=== PATIENT | male | born 1950 | race Caucasian/White ===

== ENCOUNTER 2017-04-07 05:05 | Inpatient (IN) | payer OTHER, MEDICARE ==
[2017-03-11 13:54] VITALS: BMI 27.0
--- NOTE | 2017-03-11 14:35 | PAT Medication Instructions ---
Service Date Mar 11, 2017. Current Home Medication List Acetaminophen (Tylenol), 1,000 MG PO PRN Betamethasone Dip Aug 0.05% (Diprolene 0.05%), 1 DOSE TOP PRN Meloxicam (Mobic), 15 MG PO BID Phenytoin Sodium (Dilantin), 200 MG PO BID Travoprost (Travatan Z), 1 DROPS OPR HS Medication Instructions For Your Scheduled Surgery - Check with surgeon for instructions: Meloxicam (Mobic), 15 MG PO BID - Take the following medications the morning of surgery with a sip of water: Phenytoin Sodium (Dilantin), 200 MG PO BID Betamethasone Dip Aug 0.05% (Diprolene 0.05%), 1 DOSE TOP PRN (if needed) Acetaminophen (Tylenol), 1,000 MG PO PRN (if needed) - Take the following medications as scheduled the night before surgery: Travoprost (Travatan Z), 1 DROPS OPR HS Phenytoin Sodium (Dilantin), 200 MG PO BID Betamethasone Dip Aug 0.05% (Diprolene 0.05%), 1 DOSE TOP PRN (if needed) Acetaminophen (Tylenol), 1,000 MG PO PRN (if needed) If you have any questions please call us at [phone] or [phone] or [phone]
[2017-03-11 16:19] LABS: URINE APPEARANCE CLEAR (CLEAR); URINE COLOR DK YELLOW; URINE EPITHELIAL CELL AUTO >30 /lpf (0-5); URINE NITRITE NEG (NEG); URINE SPECIFIC GRAVITY 1.037 (1.000-1.030); UROBILINOGEN NEG (NEG)
[2017-03-11 16:21] LABS: MANUAL MICROSCOPIC REQUIRED? NO; REVIEW REQ? NO
[2017-03-11 16:22] LABS: URINE BILIRUBIN NEG (NEG)
[2017-03-11 16:25] LABS: PROTHROMBIN TIME (PATIENT) 10.5 SECONDS (9.0-12.0)
[2017-03-11 16:40] LABS: BASO % 0.5 %; BASO ABS # 0.05 K/uL (0-0.2); COMPLETE YES; EOS % 1.9 %; HEMATOCRIT 41.2 % (42-52); IG% 0.2 %; MEAN CELL VOLUME 87.3 fL (80-100); MEAN CORPUSCULAR HEMOGLOBIN 29.9 pg (25-34); MEAN CORPUSCULAR HGB CONC 34.2 g/dl (32-36); MEAN PLATELET VOLUME 8.9 fL (7.4-10.4); MONO % 7.9 %; NEUT % 71.5 %; PLATELET COUNT 276 K/uL (130-400); RED BLOOD COUNT 4.72 M/uL (4.7-6.1); WHITE BLOOD COUNT 9.47 K/uL (4.8-10.8)
[2017-03-11 16:41] LABS: BUN/CREATININE RATIO 20.4 (10-20); CALCIUM 9.5 mg/dl (8.5-10.1); CREATININE 0.9 mg/dl (0.60-1.40); POTASSIUM 4.2 mmol/L (3.5-5.1)
--- NOTE | 2017-04-06 17:44 | HISTORY & PHYSICAL EXAMINATION ---
DATE OF ADMISSION: 04/07/2017 HISTORY AND PHYSICAL ADMISSION NOTE CHIEF COMPLAINT: Primary osteoarthritis of the left hip. HISTORY OF PRESENT ILLNESS: Osei is a very pleasant 66-year-old male who presented to my office with chronic left hip pain. It's getting to the point where he is having a hard time ambulating. He walks with a significant limp. X-rays and clinical examination were diagnostic for advanced osteoarthritis of the left hip and after failing extensive conservative treatment, he has elected to proceed with a left total hip arthroplasty. PAST MEDICAL HISTORY: Significant for osteoarthritis. PAST SURGICAL HISTORY: None. ALLERGIES: None. MEDICATIONS: Include Dilantin 100 mg 2 in the morning and 2 in the evening, Meloxicam 15 mg daily, Tylenol skin cream. FAMILY HISTORY: Noncontributory. SOCIAL HISTORY: The patient is . Never drinks. Denies any tobacco or IV drug use is very active. REVIEW OF SYSTEMS: The patient complains of severe left hip pain. All other pertinent review of systems is negative. PHYSICAL EXAMINATION: GENERAL: He is awake, alert and oriented x3. He is in no apparent distress. He is very pleasant. HEENT: Pupils are equal, round and reactive to light. Extraocular motion intact. Oral mucosa is pink and moist. HEART: Regular rate per radial pulse. LUNGS: Ira symmetrically bilaterally with no audible breath sounds. ABDOMEN: Soft, nontender, nondistended. MUSCULOSKELETAL: On physical examination of his left hip. He has very limited internal and external rotation with reproducible groin pain. He walks with a very antalgic gait. His left leg is significantly shortened compared to his right. IMAGING DATA: X-rays of the left hip do show flattening of the left femur with significant degeneration. There is complete loss of joint space and osteophyte formation. IMPRESSION: Advanced osteoarthritis of the left hip. PLAN: He would like to proceed with a left total hip arthroplasty through an anterior approach. Will use a Biomet taper lock hip. Postoperatively, he will be started on aspirin 325 mg twice a day and kept in the hospital for postoperative medical management. BRANDON
[~2017-04-07] VITALS: Ht 170.2 cm; Wt 80.6 kg
[2017-04-07] VITALS (10 sets, daily range): BP systolic 112–170; BP diastolic 49–73; PULSE 59–77; TEMP 36.4–36.9; O2SAT 95–100; Ht 170.2 cm; Wt 80.6 kg
[~2017-04-07 05:05] MED LIST: ACET-1256 PO; AUG0.05O4 TOP; DLN100 PO; MELO7.5T5 PO; TRAV0.00 OPR
[2017-04-07] MEDS ORDERED: ACETAMINOPHEN 500 MG TAB PO SCH (06:00)
[2017-04-07] MEDS ORDERED: LACTATED RINGER'S 1000ML 1,000 ML IV SCH ×2 (06:00)
[2017-04-07] MEDS ORDERED: FAMOTIDINE 20 MG TAB PO SCH (06:00)
[2017-04-07] MEDS ORDERED: VANCOMYCIN INJ 1,200 MG in SODIUM CHLORIDE 0.9% 250ML 250 ML IV SCH ×2 (06:00→18:00)
[2017-04-07] MEDS ORDERED: ROPIVACAINE 5MG/ML 30 ML 150 MG, BUPIVACAINE/EPINEPHR 0.5% MPF 30 ML, KETOROLAC TROMETH... INFIL SCH ×7 (06:00)
[2017-04-07] MEDS ORDERED: GABAPENTIN 300 MG CAP PO SCH (06:00)
[2017-04-07] MEDS ORDERED: LACTATED RINGER'S 1000ML 500 ML IV ONE (06:00)
[2017-04-07] MEDS ORDERED: BUPIVACAINE 0.5 % 5 MG/1 ML PF 10ML VIAL ONE (06:24)
[2017-04-07] MEDS ORDERED: ORTHO JOINT ANESTHETIC ONE (06:37)
[2017-04-07] MEDS ORDERED: BACITRACIN 50000 UNIT VIAL ONE (06:37)
--- NOTE | 2017-04-07 06:40 | History & Physical Bridge Note ---
H&P Re-Evaluation Bridge Note: I have examined the patient, reviewed the History & Physical and in the interval since the performance of the History & Physical I have noted the following changes of clinical significance: No changes noted
[2017-04-07] MEDS ORDERED: MIDAZOLAM HCL 1 MG/ML 2ML VIAL ONE (06:42)
[2017-04-07] MEDS ORDERED: FENTANYL CITRATE INJ 50 MCG/1 ML 2 ML VIAL ONE (06:42)
[2017-04-07] MEDS: TRANEXAMIC ACID INJ 1,000 MG in SODIUM CHLORIDE 0.9% 100ML 100 ML IV SCH ×2 (06:46→12:40)
[2017-04-07] MEDS ORDERED: PROPOFOL IV EMULSION 10 MG/ML 20 ML VIAL IV ONE ×2 (07:32→09:02)
--- NOTE | 2017-04-07 09:34 | DIAGNOSTIC IMAGING REPORT ---
LEFT HIP UNILATERAL 1 VIEW CLINICAL HISTORY: LT ANTERIOR TOTAL. Hip prosthesis. COMPARISON STUDY: Left hip 03/11/2017. FINDINGS: Total fluoroscopy time was 1 minute and 25 seconds. 5 fluoroscopic spot images of the left hip were submitted. 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 This is followed by placement of a left total hip arthroplasty. The hardware appears intact. No fracture or dislocation. IMPRESSION: Fluoroscopy provided for left total hip arthroplasty. Electronically signed by: Sherman Minaya M.D. 04/07/2017 9:33 AM Dictated Date/Time: 04/07/2017 9:32 AM
--- NOTE | 2017-04-07 09:35 | [facility] Post Operative Brief Note ---
Immediate Operative Summary Operative Date Apr 07, 2017. Pre-Operative Diagnosis Advanced Osteoarthritis of Left Hip Post-Operative Diagnosis Advanced Osteoarthritis of Left Hip Procedure(s) Performed Left Anterior Total Hip Arthroplasty Uncemented Surgeon Dr Juan M Goff Plug Saw Operator Surgeon(s) Govind Torres PA-C Estimated Blood Loss 450cc Findings as above Specimens As per Surgeon A. Left Femoral Head Complication(s) None Disposition Recovery Room / PACU
[2017-04-07] MEDS ORDERED: MAGNESIUM HYDROXIDE SUSP 30 ML UDC PO PRN (09:45)
[2017-04-07] MEDS ORDERED: SOD PHOSPHATE/SOD BIPHOSPHATE ENEMA 132 ML BTL PR PRN (09:45)
[2017-04-07] MEDS ORDERED: EpHEDrine SULFATE INJ 50 MG/ML AMP IV PRN (09:45)
[2017-04-07] MEDS ORDERED: NALOXONE HCL 0.4 MG/1 ML VIAL/CARP IV PRN (09:45)
[2017-04-07] MEDS ORDERED: HYDROmorphone INJ 1 MG/ML SYR IV PRN ×2 (09:45)
[2017-04-07] MEDS ORDERED: FLUMAZENIL 0.1 MG/1 ML 10 ML VIAL IV PRN (09:45)
[2017-04-07] MEDS ORDERED: HYDROmorphone HCL 2 MG TAB PO PRN (09:45)
[2017-04-07] MEDS ORDERED: BISACODYL 10 MG SUPP PR PRN (09:45)
[2017-04-07] MEDS ORDERED: SILVER SULFADIAZINE 1% CR 50 GM JAR EXT PRN (09:45)
[2017-04-07] MEDS ORDERED: ATROPINE SULFATE 0.1 MG/ML 5ML SYR IV PRN (09:45)
[2017-04-07] MEDS ORDERED: METOCLOPRAMIDE HCL INJ 5 MG/ML 2 ML VIAL IV PRN (09:45)
[2017-04-07] MEDS ORDERED: ONDANSETRON INJ 2 MG/ML 2 ML VIAL IV PRN ×2 (09:45)
--- NOTE | 2017-04-07 09:52 | OPERATIVE REPORT ---
DATE OF OPERATION: 04/07/2017 PREOPERATIVE DIAGNOSIS: Severe osteoarthritis of the left hip. POSTOPERATIVE DIAGNOSIS: Same. PROCEDURE: Left total hip arthroplasty. SURGEON: Dr. Juan M Goff. REPLENISHMENT MERCHANDISING ASSOCIATE: Govind Torres PA-C, whose assistance was necessary for helping with retraction and closure. ANESTHESIA: Spinal. COMPLICATIONS: None. CONDITION: Stable to PACU. IMPLANTS USED: I used a Biomet Taperloc system with a size 15 standard offset pressfit Taperloc stem, a G7 OsseoTi 56-mm cup with a 30-mm and 20-mm screw, a G7 size 40 liner and a 40/+3 ceramic head. INDICATIONS: Osei is a pleasant 66-year-old male who has been dealing with chronic left hip pain. He has no previous x-rays or history of avascular necrosis. He did have complete collapse of his femoral head and severe arthritis within the joint. After failing conservative treatment, he elected to undergo a total hip arthroplasty. DESCRIPTION OF PROCEDURE: On 04/07/2017, he arrived at [facility] for the above procedure. He was seen in the preoperative holding area and the operative extremity was identified and signed. He was given a preoperative antibiotic, taken back to the operating room, laid on the table in supine position and given a spinal anesthetic. The left leg was then put in the Purist leg positioner. The left hip was then prepped and draped in sterile fashion. Time-out was done and the patient and operative extremity was properly identified. An anterior approach was used. Dissection was taken down through the fascia and the tensor fascia was incised. The tensor was retracted laterally and the sartorius medially. Care was taken not to disrupt the femoral nerve. The circumflex vessels were ligated. The capsule was exposed. The reflected head of the rectus was slightly elevated off the anterior capsule. The capsule was incised and tagged for later repair. The femoral neck was then resected and the head was removed. The acetabulum was exposed. Time was spent doing a complete labral resection. Sequential reaming up to a size 56 reamer was done. I initially tried a standard G7 cup, but I was not happy with the fit. I then did a G7 Osseoti cup and I was much happier with the pressfit. Two screws were then placed. The poly liner was then snapped into place. The femur was then exposed. Sequential broaching up to a size 15 broach was done. Several different trial heads were used and a +3/40 head seemed to be the best fit. Leg lengths were checked under fluoroscopy. The final size 15 standard stem was then impacted into place followed by a 40/+3 ceramic head. The hip was reduced. After reduction, the leg positioner said that he was lengthened a cm. He was still a little bit short on his left side compared to his right, but I was nervous of over lengthening him with his neurovascular structures. I made up about 70% of his leg length discrepancy. The wound was then irrigated with 3 liters of normal saline solution with bacitracin. The surrounding soft tissues were injected with 100 mL of an orthopedic pain control cocktail. The capsule was then closed with #1 Vicryl suture. A drain was placed. The fascia was closed with #1 PDS suture and skin was closed with 2-0 Vicryl, Prolene suture and a Prineo dressing. He was then taken to the postanesthesia care unit in stable condition. He tolerated the procedure well. I attest to the content of the Intraoperative Record and any orders documented therein. Any exceptions are noted below. BRANDON
--- NOTE | 2017-04-07 10:31 | DIAGNOSTIC IMAGING REPORT ---
LEFT PELVIS/UNILATERAL HIP 1 VIEW CLINICAL HISTORY: 66 years-old Male presenting with postsurgical left hip arthroplasty. TECHNIQUE: Frontal view of the pelvis and crosstable lateral view of the left hip were obtained. COMPARISON: 03/11/2017. FINDINGS: Postsurgical changes of total left hip arthroplasty. No acute fracture or hardware complication is evident. Surgical drain and soft tissue emphysema noted. Osseous fragment superior to the left hip unchanged. IMPRESSION: Expected postoperative changes status post total left hip arthroplasty. Electronically signed by: Leroy Cruz M.D. 04/07/2017 10:30 AM Dictated Date/Time: 04/07/2017 10:28 AM
--- NOTE | 2017-04-07 10:33 | Anesthesiology Progress Note ---
Anesthesia Post Op Note Date & Time Apr 07, 2017 at 10:33 Vital Signs Pain Intensity: 0 Vital Signs Past 12 Hours Date Time Temp Pulse Resp B/P (MAP) Pulse Ox O2 Delivery O2 Flow Rate FiO2 04/07/17 09:49 36.0 62 12 112/53 100 Nasal Cannula 2 04/07/17 05:50 36.4 59 20 170/66 100 Room Air Notes Mental Status: alert / awake / arousable, participated in evaluation Pt Amnestic to Procedure: Yes Nausea / Vomiting: adequately controlled Pain: adequately controlled Airway Patency, RR, SpO2: stable & adequate BP & HR: stable & adequate Hydration State: stable & adequate Neuraxial Anesthesia: was administered, sensory block is resolving Anesthetic Complications: no major complications apparent
[2017-04-07] MEDS: KETOROLAC TROMETHAMINE 15 MG/ML VIAL IV. SCH ×3 (12:41→23:36)
[2017-04-07] MEDS: SODIUM CHLORIDE 0.9% 1000ML 1,000 ML IV SCH ×2 (12:41→21:15)
[2017-04-07] MEDS: ACETAMINOPHEN IV 1,000 MG in EMPTY BAG 0 ML IV SCH ×2 (14:09→22:30)
[2017-04-07] MEDS: DOCUSATE SODIUM 100 MG CAP PO SCH (21:11)
[2017-04-07] MEDS: TRAVOPROST Z 0.004% OPH SOLN 2.5 ML BTL OPR SCH (21:11)
[2017-04-07] MEDS: PHENYTOIN SODIUM ER 100 MG CAP PO SCH (21:11)
[2017-04-07] MEDS: SENNA 8.6 MG TAB PO SCH (21:11)
[2017-04-07] MEDS: ASPIRIN 325 MG ECTAB PO SCH (21:11)
[2017-04-08] VITALS (7 sets, daily range): BP systolic 106–169; BP diastolic 46–71; PULSE 61–74; TEMP 36.7–37; O2SAT 96–100
[2017-04-08] MEDS: ACETAMINOPHEN IV 1,000 MG in EMPTY BAG 0 ML IV SCH (05:35)
[2017-04-08] MEDS: KETOROLAC TROMETHAMINE 15 MG/ML VIAL IV. SCH ×3 (05:36→17:46)
[2017-04-08 06:19] LABS: BASO % 0.5 %; BASO ABS # 0.05 K/uL (0-0.2); COMPLETE YES; EOS % 1.3 %; HEMATOCRIT 26.3 % (42-52); IG% 0.3 %; LYMPH % 16.3 %; MEAN CELL VOLUME 86.8 fL (80-100); MEAN CORPUSCULAR HEMOGLOBIN 29.7 pg (25-34); MEAN CORPUSCULAR HGB CONC 34.2 g/dl (32-36); MEAN PLATELET VOLUME 8.2 fL (7.4-10.4); MONO % 9.6 %; PLATELET COUNT 144 K/uL (130-400); RED BLOOD COUNT 3.03 M/uL (4.7-6.1); WHITE BLOOD COUNT 9.23 K/uL (4.8-10.8)
[2017-04-08 06:52] LABS: BUN/CREATININE RATIO 21.5 (10-20); CALCIUM 7.7 mg/dl (8.5-10.1); CREATININE 0.69 mg/dl (0.60-1.40); POTASSIUM 3.9 mmol/L (3.5-5.1)
[2017-04-08] MEDS: SODIUM CHLORIDE 0.9% 1000ML 1,000 ML IV SCH (07:32)
[2017-04-08] MEDS: DOCUSATE SODIUM 100 MG CAP PO SCH ×2 (08:30→20:30)
[2017-04-08] MEDS: ASPIRIN 325 MG ECTAB PO SCH ×2 (08:30→20:29)
[2017-04-08] MEDS: PANTOprazole SOD 40 MG TAB PO SCH (08:30)
[2017-04-08] MEDS: PHENYTOIN SODIUM ER 100 MG CAP PO SCH ×2 (08:30→20:28)
[2017-04-08] MEDS: MULTIVITAMIN TAB PO SCH (08:30)
--- NOTE | 2017-04-08 09:17 | PROGRESS NOTE ---
DATE: 04/08/2017 CHIEF COMPLAINT: Status post left total hip arthroplasty postop day #1. PROGRESS: Osei was seen and examined at bedside today. Overall, he is doing very well right now. He did have an episode with pain and nausea last night. He then had a small seizure. This was witnessed by the nurse. Right afterward it subsided, he has since been asymptomatic. He did start his Dilantin at 2:30 in the morning of surgery, which is about 4 hours earlier than he normally takes it. He has no other complaints. PHYSICAL EXAMINATION: LEFT HIP: The dressing is clean and dry. The drain is to suction. He has active dorsiflexion and plantarflexion of his left ankle and sensation intact throughout his quad. LABORATORY DATA: He has an H and H today of 9.0 and 26.3. His glucose is 113. I did order a Dilantin level on him today and we will check his H and H tomorrow. Vital signs are stable on room air. He is voiding on his own. X-RAYS AND RADIOGRAPHS: Reviewed postoperatively of the hip showed the prosthesis to be in near anatomic alignment without any evidence of fracture, dislocation or loosening. IMPRESSION: Status post left total hip arthroplasty postop day #1. PLAN: At this point, he is doing fairly well. We will check Dilantin level throughout the day today. We will also check an H and H tomorrow morning. If everything looks good, he can follow up with his family physician. His hip seems to be doing very well and he will work with physical therapy today. He is on aspirin 325 mg twice a day for DVT prophylaxis. We will still plan on discharge to home tomorrow.
--- NOTE | 2017-04-08 09:37 | Clinical Documentation Query ---
QUERY 1 OF [address] RAZA, In your clinical opinion is this patient being managed for: ( ) Acute blood loss anemia ( ) Other explanation of clinical findings (Please Explain) ( ) Unable to determine (Please Define) ( ) Need to Discuss ( ) Not Agree The medical record reflects the following clinical findings, treatment, and risk factors. Clinical Indicators: 66 yo male presenting with L hip OA for a L NICK. EBL noted to be 450 cc with baseline Hgb 14.1, Hct 41.2, post op Hgb 9, Hct 26.3. Treatment: monitor CBC/H/H Risk Factors: surgery with EBL of 450 cc QUERY 2 OF 2 In your clinical opinion does this patient have: ( ) Seizure disorder/Epilepsy ( ) Other explanation of clinical findings (Please Explain) ( ) Unable to determine (Please Define) ( ) Need to Discuss ( ) Not Agree The medical record reflects the following clinical findings, treatment, and risk factors. Clinical Indicators: Review of H/P does not provide a medical diagnosis for pt's chronic dilantin therapy. Progress note indicates pt's nurse witnessed pt having a small seizure. Treatment: chronic dilantin, check dilantin level Risk Factors: chronic condition with chronic treatment Please clarify and document your clinical opinion in the progress notes and discharge summary. Terms such as "probable", "suspected", "likely", "questionable", "possible", or "still to be ruled out" are acceptable. IF IN AGREEMENT, YOU MUST DOCUMENT ABOVE DIAGNOSTIC STATEMENT IN DAILY PROGRESS NOTES AND DISCHARGE SUMMARY. This document is not part of the patient's record. Thank You, Laura Alex, RN [phone]
[2017-04-08] MEDS: ACETAMINOPHEN 500 MG TAB PO SCH ×2 (13:32→22:51)
[2017-04-08] MEDS: SENNA 8.6 MG TAB PO SCH (20:28)
[2017-04-08] MEDS: TRAVOPROST Z 0.004% OPH SOLN 2.5 ML BTL OPR SCH (20:30)
[2017-04-09] MEDS: KETOROLAC TROMETHAMINE 15 MG/ML VIAL IV. SCH ×2 (00:13→05:39)
[2017-04-09] MEDS: ACETAMINOPHEN 500 MG TAB PO SCH (05:38)
[2017-04-09 06:22] VITALS: BP 163/67; PULSE 72; TEMP 36.6; O2SAT 99
[2017-04-09] MEDS ORDERED: ASPEC325 PO (06:23)
[2017-04-09] MEDS ORDERED: DLD2 PO (06:23)
--- NOTE | 2017-04-09 06:24 | Discharge Instructions ---
Discharge Instructions Date of Service Apr 09, 2017. Admission Reason for Admission: Left Hip Degenerative Joint Disease Discharge Discharge Diagnosis / Problem: Left Total Hip Discharge Goals Goal(s): Decrease discomfort, Improve function Activity Recommendations Activity Limitations: as noted below . Instructions / Follow-Up Instructions / Follow-Up Activity and Therapy Recommendations: * If you are using [facility] then Physical Therapy will be provided until they feel you are ready to start Outpatient Physical Therapy. If you are not using a Home Health agency then Outpatient Physical Therapy should start about 3-5 days from your day of surgery. Therapy will last about 3-6 weeks * You were shown a series of exercises in the hospital. Do these exercises three times each day including the exercises you were shown in physical therapy. * Get up and walk several times each day.~ For the first four weeks, try not to stand or walk for more than one hour at a time. If you do stand or walk for more than one hour, you will not hurt anything, but your leg will likely swell.~ ~ * As you feel comfortable, you may change from the walker or crutches to a cane and~then to independent walking. Medications: * Narcotic You will likely be sent home from the hospital with a prescription for the narcotic pain medication that worked best throughout your stay. * Aspirin Most patients will be required to take Aspirin 325mg twice a day for 6 weeks after surgery. This is obtained [id number] and a prescription is not necessary. * Other medications may be prescribed for specific circumstances. If you have any questions, please call the office at . * Resume previous home medications unless otherwise instructed TEDs/Elastic Stockings: The white elastic stockings help limit swelling and prevent blood clots from forming in your legs. The more you wear them, the more they work. Wear them for six weeks. Dressing Care: You will likely have a Prineo dressing covering your incision. This looks like a glued on clear mesh dressing. Do not remove this dressing until you follow- up in my office in 2-3 weeks. Its pretty hard to peel it off. You may leave the Prineo dressing uncovered or cover it if it is draining a little bit. No further dressing care is required Showering: You may shower 3 days from the day of surgery. Leave the Prineo dressing intact and let the soapy shower water run over it. Do not scrub or soak the dressing or the incision. Things To Watch For: * Drainage from the incision site that occurs more than one week after your surgery. * Increased redness at the incision site. * Fever above 102 degrees Fahrenheit. * Unusual chest pain or shortness of breath. * [facility] at with any of the above problems Follow-Up Visit: Follow-up with Dr. Goff 2-3 weeks after your day of surgery. An appointment was probably scheduled when you signed-up for surgery in the office. If you have any questions call Office Instructions: More detailed instructions as well as Frequently Asked Questions were provided in a folder by our office when you signed-up for surgery. Please review these instructions when you get home. If you have any further questions or concerns, please feel free to call the office at [phone] Current Hospital Diet Patient's current hospital diet: Regular Diet Discharge Diet Recommended Diet: Regular Diet Procedures Procedures Performed: Left Anterior Total Hip Arthroplasty Uncemented Pending Studies Studies pending at discharge: no Medical Emergencies . Who to Call and When: Medical Emergencies: If at any time you feel your situation is an emergency, please call [phone] immediately. . Non-Emergent Contact Non-Emergency issues call your: Surgeon Call Non-Emergent contact if: wound has increased drainage, wound has increased redness . "Provider Documentation" section prepared by Juan M Goff. . VTE Core Measure Inpt VTE Proph given/why not?: Other Anticoagulation (Aspirin 325 twice a day for 6 weeks)
--- NOTE | 2017-04-09 07:23 | PROGRESS NOTE ---
DATE: 04/09/2017 CHIEF COMPLAINT: Status post left total hip arthroplasty postop day #2. PROGRESS: Osei was seen and examined at bedside today. Overall, he is doing very well. Has very little pain in the hip. He has been ambulating well with physical therapy and has no complaints. PHYSICAL EXAMINATION: LEFT HIP: The incision is clean and dry and the dressing has been changed and drain has been pulled. He is neurovascularly intact. IMPRESSION: Status post left total hip arthroplasty postop day #2. PLAN: At this point, he is doing very well and is happy with his progress. He is not having much pain in his hip. He is ambulating well with physical therapy. He can be discharged to home later this morning.
[2017-04-09 07:26] VITALS: BP 139/77; PULSE 94; TEMP 36.6; O2SAT 94
[2017-04-09] MEDS: PHENYTOIN SODIUM ER 100 MG CAP PO SCH (07:26)
[2017-04-09] MEDS: ASPIRIN 325 MG ECTAB PO SCH (07:26)
[2017-04-09] MEDS: DOCUSATE SODIUM 100 MG CAP PO SCH (07:26)
[2017-04-09] MEDS: PANTOprazole SOD 40 MG TAB PO SCH (07:26)
[2017-04-09] MEDS: MULTIVITAMIN TAB PO SCH (07:27)
[2017-04-09 07:52] VITALS: BP 124/46; PULSE 70; TEMP 36.7; O2SAT 99
[2017-04-09 08:00] VITALS: O2SAT 99
--- NOTE | 2017-04-09 08:08 | DISCHARGE SUMMARY ---
DATE OF DISCHARGE: 04/09/2017 DISCHARGE DIAGNOSIS: Primary osteoarthritis of the left hip. PROCEDURE: Left total hip arthroplasty on 04/07/[address] Juan M Goff. DISCHARGE INSTRUCTIONS: 1. Aspirin 325 mg twice a day for 6 weeks. 2. Dilaudid 2 mg every 4 hours as needed for pain. 3. Tylenol 1000 mg as needed. 4. Betamethasone drops as needed. 5. Mobic 15 mg twice a day. 6. Dilantin 200 mg twice a day. 7. Travatan Z 1 drop at night. 8. Followup with Dr. Goff in 2 weeks. 9. Call the office of Dr. Goff with any questions or concerns. HOSPITAL COURSE: Osei is a 66-year-old male who presented to my office with complaints of severe left chronic hip pain. X-rays and clinical examination were diagnostic for primary osteoarthritis of the left hip with some collapse of the femoral head. It is unsure whether it was a true avascular necrosis. In any case, he elected to undergo a left total hip arthroplasty. On 04/07/[address] [facility] and underwent an anterior left total hip arthroplasty without complications. Postoperatively, he was started on aspirin 325 mg twice a day and discharged to general orthopedic floor. His hospital course was relatively uneventful. On postop day #1, his H&H was 9.0 and 26.3. He was ambulating well with physical therapy. Early in the morning he was having increased pain and nausea. He then had a small seizure which was witnessed by the medical staff. He was completely asymptomatic afterwards. He states that he did not take his Dilantin on schedule because of the operation. A Dilantin level was drawn and was found in the normal range. On postop day #2, he continued to do well. He had no more seizure symptoms. His H&H was drawn again was up at 9.4 and 27.0. He was back on his Dilantin schedule. He continued to work well with physical therapy. The dressing was changed, the drain was pulled and subsequently discharged to home with the above instructions. He was also given instructions that his Dilantin levels were normal and he was also told to contact his family physician about his seizure. BRANDON
[2017-04-09 09:12] VITALS: BP 124/46; PULSE 70; TEMP 36.7; O2SAT 99
[2017-05-06] MEDS ORDERED: CEPH500C2 PO (08:23)
[2017-05-14] MEDS ORDERED: DOXY-300 PO (13:24)
== END 2017-04-09 13:18 | disposition home health service (06) | DRG 470 ==
LOC: C.ACU 05:05 → C.3E 06:30 → ENRESERV 10:23
PROVIDERS: ADMIT Orthopaedic Surgery; ATTEND Orthopaedic Surgery
PROC: 0SRB04A Replacement of Left Hip Joint with Ceramic on Polyethylene Synthetic Substitute, Uncemented, Open Approach (ICD-10-PCS; principal; 2017-04-07 07:00)
DX: M16.12 Unilateral primary osteoarthritis, left hip (principal); G40.909 Epilepsy, unspecified, not intractable, without status epilepticus; H54.42 Blindness, left eye, normal vision right eye; E11.9 Type 2 diabetes mellitus without complications; H40.9 Unspecified glaucoma; R20.0 Anesthesia of skin; Z87.891 Personal history of nicotine dependence; Z79.1 Long term (current) use of non-steroidal anti-inflammatories (NSAID); Z79.899 Other long term (current) drug therapy